=== PATIENT | male | born 1945 | race Caucasian/White ===

== ENCOUNTER 2020-06-09 05:43 | Day surgery (SDC) | payer MEDICARE, BC ==
[2020-06-09] MEDS ORDERED: Midazolam 1 MG/ML 2 ML SDV IV ONE ×3 (05:44→07:09)
[2020-06-09] MEDS ORDERED: fentaNYL 100 MCG/2 ML SDV IV ONE ×3 (05:44→07:08)
[2020-06-09] MEDS ORDERED: fentaNYL 100 MCG/2 ML SDV ONE (06:16)
[2020-06-09] MEDS ORDERED: Midazolam 1 MG/ML 2 ML SDV ONE (06:16)
[2020-06-09] MEDS ORDERED: Dextrose 5%-0.45% NaCl 1,000 ML IV SCH (06:18)
--- NOTE | 2020-06-09 08:10 | OR ---
DATE: 06/09/2020 PROCEDURE: Esophagogastroduodenoscopy and multiple pinch biopsies. INSTRUMENT USED: GIF-HQ190 Olympus video panendoscope. PREMEDICATIONS: No oral or topical anesthesia used. Fentanyl 100 mcg intravenous, Versed 2 mg intravenous. Nasal O2 cannula. The procedure was done under pulse oximetry, BP recording, and associate justice. INDICATION: The patient with persistent choking as well as regurgitation unexplained and not responsive to medical measures. Diabetic, on multiple medications. Esophagogastroduodenoscopy is performed for detection of any active erosive lesions, Caba esophagus and/or malignancy also under consideration, H pylori status to be determined, endoscopic hemostasis therapy if needed. DESCRIPTION OF PROCEDURE: The scope was passed with ease. Adequate visualization of the esophagus was made from proximal to distal areas. No upper esophageal lesions identified. No distal esophageal stricture. No uphill or downhill esophageal varices. No Josephine-Aguirre tear. Grade A erosive changes were noted by [place] criteria. No esophageal polyp or tumor mass identified. Z-line was seen at around 40 cm distal to the oral verge, configuration consistent with grade 1 by ZAP classification. No proximal gastric varices noted. Gastric fundus examination by retroflexion showed no polypoid lesions. No gastric ulcer, malignant mass, or vascular ectasia identified. Duodenal bulb showed no ulcer. Visualized 2nd part of the duodenum was unremarkable. Multiple pinch biopsies were obtained from the gastric antrum and proximal body and sent for PyloriTek test for H pylori, and if negative in an hour, the tissue is to be sent for histopathology. No bleeding was noted from any of the visualized areas at the completion of examination. Photographs were taken of duodenal bulb, gastric antrum, fundus, and distal esophagus. IMPRESSION: Grade A gastroesophageal reflux disease. The patient tolerated the procedure well. [facility] /[id number]
--- NOTE | 2020-06-09 09:01 | LETTER ---
06/09/2020 RE: DEVANTE CRESPO : 1945 [place] [address] Miles: Mr. Devante Crespo had esophagogastroduodenoscopy done this morning and he tolerated the procedure well. I herewith send a copy of the endoscopy note and photographs for your review. Thank you. Sincerely, [facility] /[id number]
== END 2020-06-09 09:00 | disposition home or self-care (01) ==
LOC: DL.ENDO 05:43
PROVIDERS: ATTEND Internal Medicine Gastroenterology
DX: K21.9 Gastro-esophageal reflux disease without esophagitis (principal); E66.01 Morbid (severe) obesity due to excess calories; E11.22 Type 2 diabetes mellitus with diabetic chronic kidney disease; N18.9 Chronic kidney disease, unspecified; E78.5 Hyperlipidemia, unspecified; I25.10 Atherosclerotic heart disease of native coronary artery without angina pectoris; D64.9 Anemia, unspecified; Z68.39 Body mass index [BMI] 39.0-39.9, adult
CPT/HCPCS: 43239; 87077; J2250; J3010; J7042; 88305

== ENCOUNTER 2024-01-10 07:20 | Day surgery (SDC) | payer MEDICARE, BC ==
[2024-01-10] MEDS ORDERED: Ondansetron 4 MG/2 ML SDV IVPUSH PRN (07:30)
[2024-01-10] MEDS ORDERED: Acetaminophen/Codeine 300-30 MG Tab PO PRN (07:30)
[2024-01-10] MEDS ORDERED: Acetaminophen 325 MG Tab PO PRN (07:30)
[2024-01-10] MEDS: Proparacaine 0.5% Ophth Soln 15 ML Bottle EYELF ONE ×2 (07:38→09:26)
[2024-01-10] MEDS: Moxifloxacin 0.5% Ophth Soln 3 ML Bottle EYELF ONE (07:39)
[2024-01-10] MEDS: Povidone-Iodine 5% Sterile Ophth Soln 30 ML Bottle EYELF ONE ×2 (07:40→09:26)
[2024-01-10] MEDS: Phenylephrine 10% Ophth Soln 5 ML Bot EYELF ONE (07:41)
[2024-01-10] MEDS: Tropicamide 1% Ophth Soln 15 ML Bottle EYELF ONE (07:42)
[2024-01-10] MEDS: Timolol Maleate 0.5% Ophth Soln 5 ML Bottle EYELF ONE (07:42)
[2024-01-10] MEDS: Cataract Ophth Solution EYELF ONE (07:44)
[2024-01-10] MEDS: Sodium Chloride 0.9% 10 ML Syringe FLUSH PRN (07:45)
[2024-01-10] MEDS: Lidocaine 1% 30 ML SDV ONE (09:34)
[2024-01-10] MEDS: Vancomycin 500 MG SDV EYELF ONE (09:35)
[2024-01-10] MEDS: Diclofenac Sodium 0.1% Ophth Soln 5 ML Bottle EYELF ONE (09:37)
[2024-01-10] MEDS: Apraclonidine 0.5% Ophth Soln 5 ML Bot EYELF ONE (09:37)
[2024-01-10] MEDS: Dexamethasone/Neomycin/Polymyxin B Ophth Oint 3.5 GM Tube EYELF ONE (09:38)
== END 2024-01-10 10:20 | disposition home or self-care (01) ==
LOC: DL.SDS 07:20
PROVIDERS: ATTEND Ophthalmology
DX: E11.36 Type 2 diabetes mellitus with diabetic cataract (principal); H25.812 Combined forms of age-related cataract, left eye; E11.22 Type 2 diabetes mellitus with diabetic chronic kidney disease; N18.30 Chronic kidney disease, stage 3 unspecified; J44.9 Chronic obstructive pulmonary disease, unspecified; E66.01 Morbid (severe) obesity due to excess calories; Z79.82 Long term (current) use of aspirin; Z79.84 Long term (current) use of oral hypoglycemic drugs; Z79.899 Other long term (current) drug therapy
CPT/HCPCS: 66984; A9270; J3370; J3490

== ENCOUNTER 2024-02-07 08:20 | Day surgery (SDC) | payer MEDICARE, BC ==
[2024-02-07] MEDS ORDERED: Acetaminophen/Codeine 300-30 MG Tab PO PRN (08:30)
[2024-02-07] MEDS ORDERED: Ondansetron 4 MG/2 ML SDV IVPUSH PRN (08:30)
[2024-02-07] MEDS ORDERED: Acetaminophen 325 MG Tab PO PRN (08:30)
[2024-02-07] MEDS: Sodium Chloride 0.9% 10 ML Syringe FLUSH PRN (09:01)
[2024-02-07] MEDS: Moxifloxacin 0.5% Ophth Soln 3 ML Bottle EYERT ONE (09:03)
[2024-02-07] MEDS: Proparacaine 0.5% Ophth Soln 15 ML Bottle EYERT ONE ×2 (09:03→10:25)
[2024-02-07] MEDS: Povidone-Iodine 5% Sterile Ophth Soln 30 ML Bottle EYERT ONE ×2 (09:04→10:26)
[2024-02-07] MEDS: Timolol Maleate 0.5% Ophth Soln 5 ML Bottle EYERT ONE (09:06)
[2024-02-07] MEDS: Phenylephrine 10% Ophth Soln 5 ML Bot EYERT ONE (09:06)
[2024-02-07] MEDS: Tropicamide 1% Ophth Soln 15 ML Bottle EYERT ONE (09:06)
[2024-02-07] MEDS: Cataract Ophth Solution EYERT ONE (09:07)
[2024-02-07] MEDS: Lidocaine 1% 30 ML SDV ONE (10:26)
[2024-02-07] MEDS: Vancomycin 500 MG SDV EYERT ONE (10:26)
[2024-02-07] MEDS: Apraclonidine 0.5% Ophth Soln 5 ML Bot EYERT ONE (10:27)
[2024-02-07] MEDS: Dexamethasone/Neomycin/Polymyxin B Ophth Oint 3.5 GM Tube EYERT ONE (10:27)
[2024-02-07] MEDS: Diclofenac Sodium 0.1% Ophth Soln 5 ML Bottle EYERT ONE (10:27)
== END 2024-02-07 11:22 | disposition home or self-care (01) ==
LOC: DL.SDS 08:20
PROVIDERS: ATTEND Ophthalmology
DX: E10.36 Type 1 diabetes mellitus with diabetic cataract (principal); H25.811 Combined forms of age-related cataract, right eye; E10.22 Type 1 diabetes mellitus with diabetic chronic kidney disease; N18.32 Chronic kidney disease, stage 3b; I50.9 Heart failure, unspecified; J44.9 Chronic obstructive pulmonary disease, unspecified; E66.01 Morbid (severe) obesity due to excess calories; Z87.891 Personal history of nicotine dependence; Z79.82 Long term (current) use of aspirin; Z79.899 Other long term (current) drug therapy; Z79.4 Long term (current) use of insulin; Z68.38 Body mass index [BMI] 38.0-38.9, adult
CPT/HCPCS: 66984; A9270; J3370; 00142; 99100; J3490